=== PATIENT | male | born 1990 | race Caucasian/White ===

== ENCOUNTER 2022-03-24 15:48 | Emergency (ER) | payer OTHER ==
[~2022-03-24] VITALS: Ht 182.9 cm; Wt 84.0 kg
[2022-03-24 15:54] VITALS: BP 148/88
== END 2022-03-24 19:53 | disposition left against medical advice (07) ==
LOC: ER 15:48
DX: Z53.21 Procedure and treatment not carried out due to patient leaving prior to being seen by health care provider (principal); I49.9 Cardiac arrhythmia, unspecified
CPT/HCPCS: 93005; 99283